=== PATIENT | female | born 1965 | race Caucasian/White ===

== ENCOUNTER → 2018-03-18 | Outpatient (CLI) | payer MEDICAID ==
[2018-03-18 08:43] LABS: Basophils % (A) 1 %; Eosinophils # (A) 0.2 k/uL (0-0.7); Eosinophils % (A) 5 %; HCT 41.9 % (34.0-46.0); Lymphocytes # (A) 2.1 k/uL (1.0-4.8); Lymphocytes % (A) 46 %; MCH 29.7 pg (25.0-35.0); MCHC 33.3 g/dL (31.0-37.0); Mean Platelet Volume 7.5; Monocytes # (A) 0.3 k/uL (0-1.0); Monocytes % (A) 6 %; Neutrophils # (A) 1.8 k/uL (1.3-7.7); Neutrophils % (A) 40 %; Platelet Count 242 k/uL (150-450); RBC 4.71 m/uL (3.80-5.40); RDW 13.3 % (11.5-15.5); WBC 4.6 k/uL (3.8-10.6)
[2018-03-18 09:17] LABS: ALT 46 U/L (9-52); AST 39 U/L (14-36); Albumin 4.4 g/dL (3.5-5.0); Alkaline Phosphatase 71 U/L (38-126); Anion Gap 9 mmol/L; Blood Urea Nitrogen 21 mg/dL (7-17); Calcium 9.7 mg/dL (8.4-10.2); Carbon Dioxide 29 mmol/L (22-30); Chloride 103 mmol/L (98-107); Cholesterol 223 mg/dL (<200); Glucose 93 mg/dL (74-99); HDL Cholesterol 88 mg/dL (40-60); LDL Cholesterol,Calculated 120 mg/dL (0-99); Potassium 4.3 mmol/L (3.5-5.1); Sodium 141 mmol/L (137-145); Total Bilirubin 0.6 mg/dL (0.2-1.3); Total Protein 7.1 g/dL (6.3-8.2); Triglycerides 75 mg/dL (<150)
[2018-03-18 09:32] LABS: T4, Free (Free Thyroxine) 0.92 ng/dL (0.78-2.19)
== END | disposition home or self-care (01) ==
LOC: LABWHC1 08:13
PROVIDERS: ATTEND Family Medicine
DX: Z00.00 Encounter for general adult medical examination without abnormal findings (principal); F43.20 Adjustment disorder, unspecified
CPT/HCPCS: 36415; 80053; 80061; 84439; 84443; 85025

== ENCOUNTER → 2019-02-11 | Outpatient (CLI) | payer MEDICAID ==
--- NOTE | 2019-02-11 19:31 | MR ---
EXAMINATION TYPE: MR knee RT wo con DATE OF EXAM: 02/11/2019 COMPARISON: None HISTORY: Pain in right knee TECHNIQUE: Multiplanar, multisequence imaging of the right knee is performed without IV contrast. FINDINGS: MEDIAL MENISCUS: Some linear increased signal present within the medial meniscus does not extend to t he articular surface LATERAL MENISCUS: Linear increased signal present within the posterior horn of lateral meniscus exten ds to the articular surface, the posterior horn is attenuated compatible with tear. CRUCIATE LIGAMENTS: The anterior and posterior cruciate ligaments are intact and unremarkable. COLLATERAL LIGAMENTS: The medial collateral ligament and lateral collateral ligament complex are inta ct and unremarkable. EXTENSOR MECHANISM: Visualized quadriceps and patellar tendons are intact. EFFUSION: Suprapatellar joint effusion is present. POPLITEAL CYST: Semimembranosus gastrocnemius cyst is present measuring approximately 8.3 x 2.3 x 1. 2 cm TRICOMPARTMENT SPACES: Joint space loss present at the patellofemoral joint CARTILAGE: Grade IV chondromalacia present in the posterior patella, grade 2 to grade III chondromala bert in the medial femoral compartment BONE MARROW SIGNAL: Ganglion cysts suspected within the posterior aspect of the proximal tibia medial ly, some reactive marrow signal changes present at the patellofemoral joint and within the posterior tibia proximally. OTHER: There is marginal spurring present tricompartmentally. IMPRESSION: Osteoarthritis. Probable degenerative tear involving the lateral meniscus. Semimembranosus gastrocnem ius cyst. Joint effusion.
== END ==
LOC: RADMRIMAIN 15:38
PROVIDERS: ATTEND Family Medicine
DX: M17.11 Unilateral primary osteoarthritis, right knee (principal); M71.21 Synovial cyst of popliteal space [Baker], right knee

== ENCOUNTER → 2019-06-28 | Outpatient (CLI) | payer MEDICAID ==
[2019-06-28 08:03] LABS: Basophils # (A) 0.1 k/uL (0-0.2); Basophils % (A) 1 %; Eosinophils # (A) 0.2 k/uL (0-0.7); Eosinophils % (A) 4 %; HGB 13.2 gm/dL (11.4-16.0); Lymphocytes # (A) 2.3 k/uL (1.0-4.8); Lymphocytes % (A) 50 %; MCH 29.5 pg (25.0-35.0); MCHC 32.2 g/dL (31.0-37.0); MCV 91.4 fL (80.0-100.0); Mean Platelet Volume 6.8; Monocytes # (A) 0.3 k/uL (0-1.0); Monocytes % (A) 6 %; Neutrophils # (A) 1.6 k/uL (1.3-7.7); Neutrophils % (A) 35 %; Platelet Count 235 k/uL (150-450); RBC 4.49 m/uL (3.80-5.40); RDW 13.7 % (11.5-15.5); WBC 4.6 k/uL (3.8-10.6)
[2019-06-28 08:19] LABS: Potassium 4.4 mmol/L (3.5-5.1)
== END | disposition home or self-care (01) ==
LOC: LABPAT 07:21
PROVIDERS: ATTEND Orthopaedic Surgery
DX: Z01.812 Encounter for preprocedural laboratory examination (principal); M23.91 Unspecified internal derangement of right knee
CPT/HCPCS: 36415; 80051; 85025

== ENCOUNTER 2019-07-07 06:21 | Day surgery (SDC) | payer MEDICAID ==
[2019-07-05 11:43] VITALS: BMI 21.2
--- NOTE | 2019-07-06 17:11 | HP ---
HISTORY AND PHYSICAL REASON FOR ADMISSION: Surgery scheduled for 07/07/2019 Benita Garcia is a 53-year-old patient seen with progressive right knee pain. We discussed treatment options. She elected to proceed with arthroscopy. Consent was obtained. PAST MEDICAL HISTORY: Noncontributory. PAST SURGICAL HISTORY: Appendectomy, tonsillectomy. MEDICATIONS: Celebrex. ALLERGIES: None. SOCIAL HISTORY: She denies current tobacco use. PHYSICAL EXAMINATION: Evaluation of the right knee: Range of motion 0-135. Mild effusion. Tenderness along the medial lateral joint lines. Positive medial Valente's. Positive lateral Valente's. Ligaments stable. Hip rotation without pain. Distal neurovascular exam intact. RADIOGRAPHS: Radiographs of the right knee revealed moderate osteoarthritis. MRI of the right knee revealed lateral meniscal tear. IMPRESSION: Internal derangement, right knee with lateral meniscal tear. PLAN: Right knee arthroscopy with partial meniscectomy and debridement. Surgery scheduled for 07/07/2019. MMODL / IJN: [id number] /
[~2019-07-07 06:21] MED LIST: DEXAMETHASONE SOD PHOSPHATE 10 MG/ML 1 ML VIAL IV ONE; LACTATED RINGERS 1,000 ML IV SCH; LIDOCAINE 1% 20 ML VIAL (10MG/ML) FOR IV START INTRADERMA PRN; MIDAZOLAM 2 MG/2 ML VIAL IV PRN; ONDANSETRON 4 MG/2 ML VIAL IVP ONE; SCOPOLAMINE 1.5MG/72HR PATCH TRANSDERM ONE
[2019-07-07] MEDS ORDERED: MIDAZOLAM 2 MG/2 ML VIAL ONE (07:25)
[2019-07-07] MEDS ORDERED: fentaNYL (PF) 50 MCG/ML 2 ML AMP ONE (07:25)
[2019-07-07] MEDS ORDERED: LIDOCAINE 1% INJ 10MG/ML (20 ML MDV) ONE (07:25)
[2019-07-07] MEDS ORDERED: GLYCOPYRROLATE 0.2 MG/ML 2 ML VIAL ONE (07:25)
[2019-07-07] MEDS ORDERED: ePHEDrine SULFATE/0.9% NACL/PF 50 MG/5 ML SYRINGE IV ONE (07:25)
[2019-07-07] MEDS ORDERED: SUCCINYLCHOLINE CHLORIDE 100 MG/5 ML SYR IV ONE (07:25)
[2019-07-07] MEDS ORDERED: PROPOFOL 10 MG/ML 20 ML VIAL IV ONE (07:25)
[2019-07-07] MEDS ORDERED: BUPIVACAIN-EPI 0.25%-1:200,000 30 ML VIAL SQ ONE (08:03)
--- NOTE | 2019-07-07 08:24 | P.OP ---
Date of Procedure: 07/07/19 Preoperative Diagnosis: Internal derangement right knee Postoperative Diagnosis: 1. Tear lateral meniscus right knee 2. Grade 2/3 chondromalacia medial femoral condyle right knee 3. Grade 1/2 chondromalacia lateral femoral condyle right knee 4. Reactive synovitis medial, lateral and suprapatellar compartments right knee Procedure(s) Performed: 1. Arthroscopic partial lateral meniscectomy right knee 2. Arthroscopic chondroplasty medial femoral condyle right knee 3. Arthroscopic chondroplasty lateral femoral condyle right knee 4. Arthroscopic partial synovectomy medial, lateral and suprapatellar compartments right knee Anesthesia: HUGHA, local Surgeon: Derik Olguin Estimated Blood Loss (ml): 7 Pathology: none sent Condition: stable Disposition: PACU Indications for Procedure: 53-year-old patient seen with progressive right knee pain. After treatment options were discussed, she elected to proceed with arthroscopy. Operative Findings: See description of procedure Description of Procedure: Patient was taken to the operative suite. Patient underwent a general anesthetic by the department of anesthesia. Patient was given preoperative antibiotics. The right lower extremity was placed in a well-padded arthroscopic leg pacheco. The right leg was prepped and draped in the normal sterile orthopedic fashion. A lateral parapatellar and suprapatellar incision was made. Trochars were inserted. Arthroscopy was initiated. Suprapatellar pouch revealed diffuse thick reactive synovitis. The patellofemoral joint appeared to articulate congruently. There was grade 1/2 chondromalacia of the patella with no osteochondral tears present. The scope was guided into the medial gutter. No loose bodies or plica were identified The scope was then guided into the medial compartment. A medial parapatellar incision was made. Trocar inserted followed by probe. The medial meniscus was probed and found to be stable. There were grade 2/3 chondromalacia changes of the medial femoral condyle with some osteochondral flap tears present. There was thick reactive synovitis anteriorly. I performed a chondroplasty of the medial femoral condyle getting down to stable osteochondral tissue. I performed a partial synovectomy decompressing the thick reactive synovitis anteriorly. The residual osteochondral surface was stable. Scope and probe were then guided into the intercondylar notch. Cruciates were identified, probed and found to be stable. The scope and probe were then guided into lateral compartment. There was a complex tear involving the posterior horn and midbody of the lateral meniscus. There were grade 1/2 chondromalacia changes of the lateral femoral condyle with some small osteochondral flap tears present. There was thick reactive synovitis anteriorly. I performed a partial lateral meniscectomy. I performed a chondroplasty of the lateral femoral condyle. I performed a partial synovectomy area the residual meniscus was stable. The residual osteochondral surface was stable. There was good decompression of the synovitis. The scope was in guided back into the suprapatellar compartment. I introduced a motorized shaver into the suprapatellar compartment. I debrided some piecemeal fragments of meniscus I encountered. I performed a partial synovectomy. Shaver was removed. I took one more look around the entire knee, no residual debris. Instruments were now removed from the joint. The joint was infiltrated with .25% Marcaine. Steri- Strips were applied to the portal sites. Sterile dressings were applied. The patient was placed into a CIRA hose. No tourniquet was utilized. The patient was awakened, transferred to a bed and taken to recovery stable satisfactory condition.
[2019-07-07 08:26] VITALS: TEMP 97.1
[2019-07-07] MEDS: HYDROmorphone 0.5 MG/0.5 ML SYRINGE IVP PRN ×4 (08:26→08:57)
[2019-07-07] MEDS ORDERED: KETOROLAC 30 MG/ML 1 ML VIAL IVP ONE (08:33)
[2019-07-07] MEDS ORDERED: LACTATED RINGERS 1,000 ML IV ONE ×2 (08:57)
[2019-07-07 09:05] VITALS: RESP 16
[2019-07-07 09:46] VITALS: BP 138/74; PULSE 63
== END 2019-07-07 09:57 | disposition home or self-care (01) ==
LOC: OR 06:21
PROVIDERS: ATTEND Orthopaedic Surgery
DX: S83.281A Other tear of lateral meniscus, current injury, right knee, initial encounter (principal); X58.XXXA Exposure to other specified factors, initial encounter; M94.261 Chondromalacia, right knee; M65.861 Other synovitis and tenosynovitis, right lower leg; F32.9 Major depressive disorder, single episode, unspecified; I45.6 Pre-excitation syndrome; Z79.899 Other long term (current) drug therapy
CPT/HCPCS: 81025; 29881; 29876; J2250; J1100; J2405; J0690; J2001; J3010; J1885; J0330; J2704; J1170

== ENCOUNTER → 2020-11-05 | Outpatient (CLI) | payer MEDICAID ==
--- NOTE | 2020-11-05 16:52 | MR ---
EXAMINATION TYPE: MR knee RT wo con DATE OF EXAM: 11/05/2020 COMPARISON: 02/11/2019 and outside radiographs 10/12/2020 HISTORY: 55-year-old female Right knee pain TECHNIQUE: Multiplanar, multisequence imaging of the right knee is performed without IV contrast. FINDINGS: The ACL and PCL are intact. Mild edema on either side of the intact MCL fibers. LCL complex is intact . - There is new abnormal signal in the posterior horn of the medial meniscus. Signal may contact the f emoral articular surface on coronal image 23. Continued subcortical cystic change near the tibial ins ertion of the PCL and posterior root of the medial meniscus measuring up to 1 cm. Marginal spurring in the medial compartment. Mild diffuse thinning of articular cartilage in the medi al compartment slightly increased. Moderate irregular cartilage loss mid weightbearing aspect of the femoral condyle is unchanged. - The anterior horn and body of the lateral meniscus remains diminutive. There is new inner margin te ar of the posterior horn of the lateral meniscus. Mild extrusion of the body. A 1.3 x 1.1 cm parameni scal cyst near the anterior root remains unchanged. New focal high-grade cartilage loss along the mid weightbearing aspect of the femoral condyle measuri ng 1.1 cm AP and 7 mm wide. Associated degenerative subchondral signal change. - Moderate to severe cartilage loss along the mid patella and lateral patellar facet redemonstrated. Mild marginal spurring. Moderate knee joint effusion persists. Some chronic synovitis is present. Some deep soft tissue swelling relates to a leaking moderate to large Del Valle's cyst measuring up to 9. 4 cm craniocaudal and up to 4.3 cm wide. Extensor mechanism is intact. Nonspecific mild anterior soft tissue swelling. Trace fluid within the deep infrapatellar bursa. No suspicious bone marrow replacement. Normal popliteal artery anatomy. Mild generalized muscle atro phy. IMPRESSION: 1. Low-grade MCL sprain. 2. New extensive degenerative signal in the posterior horn of the medial meniscus. Possible subtle te ar of the posterior horn contacting the femoral articular surface on one image. 3. The anterior horn and body of the lateral meniscus remain markedly diminutive, suspect sequela of prior partial meniscectomy. There is new inner margin tear of the posterior horn of the lateral menis cus as compared to 02/11/2019. 4. New focal moderate to high-grade cartilage loss along the mid weightbearing aspect of the lateral femoral condyle measuring 1.1 x 0.7 cm. 5. Similar moderate to severe loss of articular cartilage along the mid patella and lateral patellar facet. Mild overall medial compartmental osteoarthrosis is similar. 6. Continued moderate joint effusion with mild chronic synovitis. The patient's large Del Valle's cyst is now leaking.
== END | disposition home or self-care (01) ==
LOC: RADMRIMAIN 13:21
PROVIDERS: ATTEND Orthopaedic Surgery
DX: M17.11 Unilateral primary osteoarthritis, right knee (principal); S83.281A Other tear of lateral meniscus, current injury, right knee, initial encounter; S83.411A Sprain of medial collateral ligament of right knee, initial encounter; R93.7 Abnormal findings on diagnostic imaging of other parts of musculoskeletal system

== ENCOUNTER → 2020-11-28 | Outpatient (CLI) | payer MEDICAID ==
[2020-11-28 14:57] LABS: Basophils # (A) 0.1 k/uL (0-0.2); Basophils % (A) 1 %; Eosinophils # (A) 0.1 k/uL (0-0.7); Eosinophils % (A) 3 %; HCT 39.1 % (34.0-46.0); Lymphocytes # (A) 1.9 k/uL (1.0-4.8); Lymphocytes % (A) 39 %; MCH 29.8 pg (25.0-35.0); MCHC 33.3 g/dL (31.0-37.0); MCV 89.5 fL (80.0-100.0); Mean Platelet Volume 7.1; Monocytes # (A) 0.3 k/uL (0-1.0); Monocytes % (A) 6 %; Neutrophils # (A) 2.3 k/uL (1.3-7.7); Neutrophils % (A) 48 %; Platelet Count 221 k/uL (150-450); RBC 4.36 m/uL (3.80-5.40); WBC 4.8 k/uL (3.8-10.6)
== END | disposition home or self-care (01) ==
LOC: LABPAT 14:05
PROVIDERS: ATTEND Orthopaedic Surgery
DX: Z01.818 Encounter for other preprocedural examination (principal); M23.91 Unspecified internal derangement of right knee
CPT/HCPCS: 80051; 85025; 93005

== ENCOUNTER 2020-12-05 08:24 | Day surgery (SDC) | payer MEDICAID ==
[2020-11-28 10:04] VITALS: BMI 21.2
--- NOTE | 2020-12-04 13:39 | HP ---
HISTORY AND PHYSICAL Surgery is scheduled for 12/05/2020. Benita Garcia is a 55-year-old patient seen with progressive right knee pain. We discussed options for treatment. She elected to proceed with arthroscopy. Consent was obtained. PAST MEDICAL HISTORY: Osteoarthritis. PAST SURGICAL HISTORY: Knee arthroscopy, tonsillectomy, appendectomy. DAILY MEDICATIONS: 1. Naprosyn. 2. Celexa. ALLERGIES: None. SOCIAL HISTORY: She denies tobacco use. PHYSICAL EXAMINATION: Physical evaluation of the right knee: Range of motion 0-130, moderate effusion. Tenderness along the medial and lateral joint lines. Positive medial Valente's. Crepitus medial patellofemoral compartments with and range of motion. Distal neurovascular exam is intact. Radiographs of the right knee revealed osteoarthritic changes. A right knee MRI revealed medial meniscal tear and osteoarthritic changes and synovitis. IMPRESSION: 1. Internal derangement right knee with meniscal tear. 2. Right knee osteoarthritis. PLAN: Right knee arthroscopy with partial meniscectomy, partial synovectomy and debridement. MMODL / IJN: [id number] /
[~2020-12-05 08:24] MED LIST changes: -DEXAMETHASONE SOD PHOSPHATE 10 MG/ML 1 ML VIAL IV ONE; +DEXAMETHASONE SOD PHOSPHATE 4 MG/ML 1 ML VIAL IV ONE; +LIDOCAINE 1% (10MG/ML) FOR IV START INTRADERMA PRN; -LIDOCAINE 1% 20 ML VIAL (10MG/ML) FOR IV START INTRADERMA PRN; -SCOPOLAMINE 1.5MG/72HR PATCH TRANSDERM ONE
[2020-12-05] MEDS ORDERED: BUPIVACAINE (PF) 0.25% 30 ML VIAL SQ ONE ×2 (09:31→10:12)
[2020-12-05] MEDS ORDERED: PROPOFOL 10 MG/ML 20 ML VIAL IV ONE (09:35)
[2020-12-05] MEDS ORDERED: MIDAZOLAM 2 MG/2 ML VIAL ONE (09:35)
[2020-12-05] MEDS ORDERED: LIDOCAINE 1% INJ 10MG/ML (20 ML MDV) ONE (09:35)
[2020-12-05] MEDS ORDERED: fentaNYL (PF) 50 MCG/ML 2 ML AMP ONE (09:35)
--- NOTE | 2020-12-05 10:27 | P.OP ---
Date of Procedure: 12/05/20 Preoperative Diagnosis: Internal derangement right knee Postoperative Diagnosis: 1. Tear medial meniscus right knee 2. Grade 4 chondromalacia lateral femoral condyle right knee 3. Grade 2/3 chondromalacia patellofemoral joint right knee 4. Reactive synovitis medial, lateral and suprapatellar compartments right knee Procedure(s) Performed: 1. Arthroscopic partial medial meniscectomy right knee 2. Arthroscopic chondroplasty lateral femoral condyle right knee 3. Arthroscopic microfracture lateral femoral condyle right knee 4. Arthroscopic partial synovectomy medial, lateral and suprapatellar compartments right knee Anesthesia: HUGHA, local Surgeon: Derik Olguin Estimated Blood Loss (ml): 7 Pathology: none sent Condition: stable Disposition: PACU Indications for Procedure: 55-year-old patient seen with progressive right knee pain. After treatment options were discussed, she elected to proceed with arthroscopy. Operative Findings: See description of procedure Description of Procedure: Patient was taken to the operative suite. Patient underwent a general anesthetic by the department of anesthesia. Patient was given preoperative antibiotics. The right lower extremity was placed in a well-padded arthroscopic leg pacheco. The right leg was prepped and draped in the normal sterile orthopedic fashion. A lateral parapatellar and suprapatellar incision was made. Trochars were inserted. Arthroscopy was initiated. Suprapatellar pouch revealed diffuse thick reactive synovitis. The patellofemoral joint appeared to articulate congruently. There was grade 2/3 chondromalacia changes of both the patella and femoral sulcus, there were no osteochondral tears present. The scope was guided into the medial gutter. There were no loose bodies, there was no plica. The scope was then guided into the medial compartment. A medial parapatellar incision was made. Trocar inserted followed by probe. There was significant articular cartilage debris within the medial compartment. I introduced a motorized shaver and debrided that out. There was a radial tear involving the posterior horn of the medial meniscus. There were grade 2 chondromalacia changes the medial compartment. There was thick reactive synovitis anteriorly. I performed a partial medial meniscectomy getting down to stable meniscal tissue. I performed a partial synovectomy decompressing the reactive synovitis. The residual meniscus was probed and found to be stable. There was good decompression of synovitis. Scope and probe were then guided into the intercondylar notch. Cruciates were identified, probed and found to be stable. The scope and probe were then guided into lateral compartment. There was significant articular cartilage fragment debris within the lateral compartment. I introduced a motorized shaver and debrided that out. The meniscus was probed and found to be stable. There were grade 3/4 chondromalacia changes the lateral femoral condyle with a large osteochondral flap tear present. There was thick reactive synovitis anteriorly. I performed a chondroplasty of the lateral femoral condyle getting down to stable osteochondral tissue. I performed a partial synovectomy decompressing reactive synovitis. There was good decompression of synovitis. There was a small area of exposed bone involving the weightbearing surface lateral femoral condyle. I performed a microfracture to that area penetrated the bone with resultant bleeding of the microfracture site. The scope was in guided back into the suprapatellar compartment. I introduced a motorized shaver into the super patellar compartment. I debrided some piecemeal fragments of meniscus I encountered. I performed a partial synovectomy decompressing the reactive synovitis. Shaver was removed. I took one more look around the entire knee, no residual debris. Instruments were now removed from the joint. The joint was infiltrated with .25% Marcaine. Steri-Strips were applied to the portal sites. Sterile dressings were applied. The patient was placed into a CIRA hose. No tourniquet was utilized. The patient was awakened, transferred to a bed and taken to recovery stable satisfactory condition.
[2020-12-05 10:29] VITALS: TEMP 98.3
[2020-12-05] MEDS ORDERED: KETOROLAC 15 MG/ML 1 ML VIAL IVP ONE (10:32)
[2020-12-05] MEDS: HYDROmorphone 0.5 MG/0.5 ML SYRINGE IVP PRN ×2 (10:32→10:40)
[2020-12-05 11:15] VITALS: RESP 16
[2020-12-05 11:52] VITALS: BP 115/72; PULSE 63
== END 2020-12-05 12:05 | disposition home or self-care (01) ==
LOC: OR 08:24
PROVIDERS: ATTEND Orthopaedic Surgery
DX: M23.203 Derangement of unspecified medial meniscus due to old tear or injury, right knee (principal); M22.41 Chondromalacia patellae, right knee; M65.861 Other synovitis and tenosynovitis, right lower leg; M17.11 Unilateral primary osteoarthritis, right knee; I45.6 Pre-excitation syndrome; Z79.1 Long term (current) use of non-steroidal anti-inflammatories (NSAID); Z79.899 Other long term (current) drug therapy
CPT/HCPCS: 29881; 29879; J2250; J1100; J2405; J0690; J2001; J3010; J1885; J2704; J1170

== ENCOUNTER → 2021-04-17 | Outpatient (CLI) | payer MEDICAID ==
--- NOTE | 2021-04-22 09:30 | MM ---
Reason for exam: screening (asymptomatic). Last mammogram was performed 7 years and 2 months ago. History: Family history of premenopausal breast cancer in paternal cousin at age 35 and breast cancer in paternal cousin at age 50. Took hormonal contraceptives for 6 years beginning at age 18. Physical Findings: A clinical breast exam by your physician is recommended on an annual basis and results should be correlated with mammographic findings. MG 3D Screening Mammo W/Cad Bilateral CC and MLO view(s) were taken. Prior study comparison: February 15, 2014, bilateral digital screening mammo w/CAD. July 13, 2009, bilateral diagnostic digital mammog. The breast tissue is heterogeneously dense. This may lower the sensitivity of mammography. ASSESSMENT: Benign, BI-RAD 2 RECOMMENDATION: Routine screening mammogram of both breasts in 1 year.
== END | disposition home or self-care (01) ==
LOC: RADMAMWWP 14:16
PROVIDERS: ATTEND Family Medicine
DX: Z12.31 Encounter for screening mammogram for malignant neoplasm of breast (principal); Z78.0 Asymptomatic menopausal state; Z80.3 Family history of malignant neoplasm of breast
CPT/HCPCS: 77063; 77067

== ENCOUNTER → 2022-05-16 | Outpatient (CLI) | payer MEDICAID ==
--- NOTE | 2022-05-19 17:13 | MM ---
Reason for Exam: Screening (asymptomatic). Last mammogram was performed 1 year(s) and 1 month(s) ago. Patient History: Menarche at age 15. First Full-Term at age 29. Late child-bearing (after 29). Postmenopausal. Patient has history of breast feeding. Hormonal Contraceptives for 6 years from age 18 until age 28. Paternal cousin had breast cancer, age 35. Paternal cousin had breast cancer, age 50. Risk Values: Hannah 5 year model risk: 1.6%. NCI Lifetime model risk: 9.8%. Prior Study Comparison: 07/13/2009 Bilateral Diagnostic Mammogram, [facility]. 02/15/2014 Bilateral Screening Mammogram, [facility]. 04/17/2021 Bilateral Screening Mammogram, [facility]. Tissue Density: The breast tissue is heterogeneously dense. This may lower the sensitivity of mammography. Findings: Analyzed By CAD. Stable focal asymmetries in the upper outer anterior left breast. No suspicious groups of microcalcifications, spiculated or lobular masses, architectural distortion or other secondary signs of malignancy are mammographically apparent. Overall Assessment: Benign, BI-RAD 2 Management: Screening Mammogram of both breasts in 1 year. A negative mammogram report should not preclude additional follow up of suspicious palpable abnormalities. Patient should continue monthly self breast exam. A clinical breast exam by your physician is recommended on an annual basis and results should be correlated with mammographic findings. Electronically signed and approved by: Tomy Siddiqui D.O. Radiologis
== END | disposition home or self-care (01) ==
LOC: RADMAMWWP 07:26
PROVIDERS: ATTEND Family Medicine
DX: Z12.31 Encounter for screening mammogram for malignant neoplasm of breast (principal); Z78.0 Asymptomatic menopausal state; Z80.3 Family history of malignant neoplasm of breast
CPT/HCPCS: 77063; 77067

== ENCOUNTER → 2023-03-18 | Outpatient (CLI) | payer MEDICAID ==
[2023-03-18 11:00] LABS: Basophils % (A) 2.2 %; Eosinophils # (A) 0.17 X 10*3/uL (0.04-0.35); Eosinophils % (A) 3.7 %; HCT 39.8 % (37.2-46.3); HGB 13.3 g/dL (12.0-15.0); Immature Grans, Automated 0 %; Lymphocytes # (A) 1.86 X 10*3/uL (0.90-5.00); MCH 30.6 pg (27.0-32.0); MCHC 33.4 g/dL (32.0-37.0); MCV 91.5 fL (80.0-97.0); Mean Platelet Volume 10.2 fL (9.5-12.2); Monocytes # (A) 0.45 X 10*3/uL (0.20-1.00); Monocytes % (A) 9.7 %; NRBC Per 100 WBC 0 /100 WBCS (0.0-0.0); Neutrophils # (A) 2.07 X 10*3/uL (1.80-7.70); Neutrophils % (A) 44.4 %; Platelet Count 266 X 10*3/uL (140-440); RBC 4.35 X 10*6/uL (4.10-5.20); RDW 13.2 % (11.5-14.5); WBC 4.65 X 10*3/uL (4.50-10.00)
[2023-03-18 11:07] LABS: ALT 20 U/L (8-44); AST 26 U/L (13-35); African American GFR (CKD) 84.4 (60.0-200.0); Albumin 4.5 g/dL (3.8-4.9); Albumin/Globulin Ratio 1.99 (1.60-3.17); Alkaline Phosphatase 68 U/L (41-126); BUN/Creat Ratio 18.15 Ratio (12.00-20.00); Blood Urea Nitrogen 15.9 mg/dL (9.0-27.0); Calcium 9.5 mg/dL (8.7-10.3); Carbon Dioxide 28.4 mmol/L (20.0-27.5); Chloride 103 mmol/L (96-109); Chol/HDL Ratio 2.91 Ratio; Globulin 2.2 g/dL (1.6-3.3); Glucose 95 mg/dL (70-110); LDL Cholesterol,Calculated 164.9 mg/dL (0.0-131.0); Non-African American GFR(CKD) 72.8 (60.0-200.0); Potassium 4.2 mmol/L (3.5-5.5); Sodium 140 mmol/L (135-145); Total Protein 6.7 g/dL (6.2-8.2)
== END | disposition home or self-care (01) ==
LOC: LABWHC1 07:04
PROVIDERS: ATTEND Student in an Organized Health Care Education/Training Program
DX: I45.6 Pre-excitation syndrome (principal); R07.89 Other chest pain
CPT/HCPCS: 36415; 80053; 80061; 84439; 84443; 85025

== ENCOUNTER → 2024-05-13 | Outpatient (CLI) | payer MEDICAID ==
[2024-05-13 10:33] LABS: ALT 15 U/L (8-44); AST 23 U/L (13-35); Albumin 4.4 g/dL (3.8-4.9); Alkaline Phosphatase 68 U/L (41-126); BUN/Creat Ratio 26.43 Ratio (12.00-20.00); Blood Urea Nitrogen 18.5 mg/dL (9.0-27.0); Calcium 9.3 mg/dL (8.7-10.3); Carbon Dioxide 24.5 mmol/L (21.6-31.8); Chloride 108 mmol/L (96-109); Chol/HDL Ratio 3.45 Ratio; Globulin 2.1 g/dL (1.6-3.3); Glucose 93 mg/dL (70-110); LDL Cholesterol,Calculated 159.5 mg/dL (0.0-131.0); Potassium 4.6 mmol/L (3.5-5.5); Sodium 142 mmol/L (135-145); Total Bilirubin 0.3 mg/dL (0.3-1.2); Total Protein 6.5 g/dL (6.2-8.2); VLDL Calculation 11.64 mg/dL (5.00-40.00)
[2024-05-13 10:38] LABS: Basophils # (A) 0.07 X 10*3/uL (0.00-0.10); Basophils % (A) 1.6 %; Eosinophils # (A) 0.19 X 10*3/uL (0.04-0.35); Eosinophils % (A) 4.5 %; HCT 38.8 % (37.2-46.3); HGB 12.9 g/dL (12.0-15.0); Immature Grans, Automated 0 %; Lymphocytes # (A) 2.19 X 10*3/uL (0.90-5.00); Lymphocytes % (A) 51.5 %; MCH 29.9 pg (27.0-32.0); MCHC 33.2 g/dL (32.0-37.0); Mean Platelet Volume 10.6 FL (9.5-12.2); Monocytes # (A) 0.43 X 10*3/uL (0.20-1.00); Monocytes % (A) 10.1 %; NRBC Per 100 WBC 0 X 10*3/uL (0.00-0.01); Neutrophils # (A) 1.37 X 10*3/uL (1.80-7.70); Neutrophils % (A) 32.3 %; Platelet Count 251 X 10*3/uL (140-440); RBC 4.31 X 10*6/uL (4.10-5.20); RDW 12.9 % (11.5-14.5); WBC 4.25 X 10*3/uL (4.50-10.00)
[2024-05-13 11:11] LABS: INR 1.02 sec (0.93-1.11)
== END | disposition home or self-care (01) ==
LOC: LABWHC1 07:05
PROVIDERS: ATTEND Family Medicine
DX: Z00.00 Encounter for general adult medical examination without abnormal findings (principal); M12.9 Arthropathy, unspecified; N83.209 Unspecified ovarian cyst, unspecified side
CPT/HCPCS: 36415; 80053; 80061; 85025; 85610

== ENCOUNTER → 2024-05-23 | Outpatient (CLI) | payer MEDICAID ==
--- NOTE | 2024-05-23 17:51 | US ---
EXAMINATION TYPE: US pelvic complete DATE OF EXAM: 05/23/2024 COMPARISON: US 2013 CLINICAL INDICATION: Female, 58 years old with history of N83.209 UNSPECIFIED OVARIAN CYST, UNSPECIFI ED SIDE; History of uterine fibroid and ovarian cyst TECHNIQUE: . Transabdominal sonographic images of the pelvis were acquired. Date of LMP: 10 years ago EXAM MEASUREMENTS: Uterus: 5.8 x 3.1 x 3.4 cm Endometrial Stripe: 0.3 cm Right Ovary: 2.7 x 1.8 x 2.0 cm Left Ovary: 3.0 x 1.8 x 2.6 cm 1. Uterus: anteverted, heterogeneous with large 5.4 x 6.5 x 7.3cm fibroid 2. Endometrium: appears wnl 3. Right Ovary: wnl 4. Left Ovary: wnl 5. Bilateral Adnexa: wnl 6. Posterior cul-de-sac: wnl IMPRESSION: 1. No evidence for acute process. 2. Fibroid change uterus. 3. Endometrium within normal limits for thickness.
== END | disposition home or self-care (01) ==
LOC: RADUSWWP 16:02
PROVIDERS: ATTEND Family Medicine
DX: D25.9 Leiomyoma of uterus, unspecified (principal); N83.209 Unspecified ovarian cyst, unspecified side
CPT/HCPCS: 76856